=== PATIENT | male | born 1995 | race Caucasian/White ===

== ENCOUNTER 2021-10-19 01:36 | Emergency (ER) | payer OTHER | END 2021-10-19 03:13 | disposition home or self-care (01) | LOC: FER 01:36 | DX: S93.501A Unspecified sprain of right great toe, initial encounter (principal); S80.02XA Contusion of left knee, initial encounter; S00.83XA Contusion of other part of head, initial encounter; W01.0XXA Fall on same level from slipping, tripping and stumbling without subsequent striking against object, initial encounter; Y92.89 Other specified places as the place of occurrence of the external cause; Y99.0 Civilian activity done for income or pay | CPT/HCPCS: 70450; 73560; 73660 ==